=== PATIENT | male | born 1945 | race Hispanic/Latino ===

== ENCOUNTER → 2022-01-10 | Outpatient (CLI) | payer MEDICARE | LOC: MRI 13:18 | PROVIDERS: ATTEND Specialist | DX: S46.011A Strain of muscle(s) and tendon(s) of the rotator cuff of right shoulder, initial encounter (principal); S43.004A Unspecified dislocation of right shoulder joint, initial encounter ==

== ENCOUNTER → 2022-02-07 | Outpatient (RCR) | payer MEDICARE | LOC: PT 01-26 10:05 | PROVIDERS: ATTEND Physician Assistant | DX: S46.011D Strain of muscle(s) and tendon(s) of the rotator cuff of right shoulder, subsequent encounter (principal); S43.004D Unspecified dislocation of right shoulder joint, subsequent encounter ==

== ENCOUNTER → 2022-03-09 | Outpatient (RCR) | payer MEDICARE | LOC: PT 02-09 07:29 | PROVIDERS: ATTEND Physician Assistant | DX: S46.011D Strain of muscle(s) and tendon(s) of the rotator cuff of right shoulder, subsequent encounter (principal); S43.004D Unspecified dislocation of right shoulder joint, subsequent encounter ==